=== PATIENT | male | born 1980 | race Caucasian/White ===

== ENCOUNTER 2016-10-01 06:42 | Day surgery (SDC) | payer BC ==
[2016-09-29 14:01] VITALS: BMI 38.0
[2016-10-01 07:09] LABS: URINE APPEARANCE CLEAR; URINE BILIRUBIN NEGATIVE (NEGATIVE); URINE BLOOD NEGATIVE (NEGATIVE); URINE COLOR YELLOW; URINE GLUCOSE (UA) NEGATIVE (NEGATIVE); URINE KETONE TRACE (NEGATIVE); URINE LEUK ESTERASE NEGATIVE (NEGATIVE); URINE NITRITE NEGATIVE (NEGATIVE); URINE PROTEIN NEGATIVE (NEGATIVE); URINE UROBILINOGEN NEGATIVE E.U./dl (0.2-1.0)
[2016-10-01] MEDS ORDERED: BUPIVACAINE HCL/PF 0.25% (2.5MG/ML) 10 ML VIAL ONE (07:26)
[2016-10-01] MEDS ORDERED: SUCCINYLCHOLINE CHLORIDE 200 MG/10 ML VIAL ONE (07:37)
[2016-10-01] MEDS ORDERED: ROCURONIUM BROMIDE 50 MG/5 ML VIAL ONE ×2 (07:37→09:01)
[2016-10-01] MEDS ORDERED: PROPOFOL 20 ML ONE ×2 (07:37)
[2016-10-01] MEDS ORDERED: MIDAZOLAM HCL 2 MG/2 ML SINGLE DOSE VIAL ONE (07:37)
[2016-10-01] MEDS ORDERED: LIDOCAINE HCL/PF 2% SDV 5ML VIAL ONE (07:39)
[2016-10-01] MEDS ORDERED: CLINDAMYCIN PHOSPHATE 600 MG/4 ML VIAL ONE (08:24)
[2016-10-01] MEDS ORDERED: CLINDAMYCIN 900 MG PREMIX BAG IVPB ONE (08:24)
[2016-10-01] MEDS ORDERED: KETOROLAC TROMETHAMINE 30 MG/1 ML VIAL ONE (08:33)
[2016-10-01] MEDS ORDERED: ePHEDrine SULFATE 50 MG/1 ML AMPULE ONE (08:50)
[2016-10-01] MEDS ORDERED: GLYCOPYRROLATE 0.2 MG/1 ML VIAL ONE (09:07)
[2016-10-01] MEDS ORDERED: NEOSTIGMINE METHYLSULFATE 0.5 MG/ML - 10 ML MDV ONE (09:07)
[2016-10-01] MEDS ORDERED: HYDROmorphone HCL CARPU-JECT 1 MG/1 ML DISP.SYRIN IVPB PRN (09:35)
[2016-10-01] MEDS ORDERED: SODIUM CHLORIDE 1,000 ML IV SCH (09:45)
[2016-10-01] MEDS ORDERED: HYDROmorphone HCL CARPU-JECT 2 MG/1 ML DISP.SYRIN ONE (09:58)
[2016-10-01] MEDS ORDERED: FAMOTIDINE 20 MG/50 ML IVPB 50 ML IVPB SCH (10:00)
[2016-10-01 10:23] LABS: MCH 30.8 pg (25.7-33.7); MCHC 33.7 g/dl (32.0-35.9); MEAN CELL VOLUME 91.3 fl (80-96); MEAN PLT VOLUME 9.5 fl (7.5-11.1); PLATELET COUNT 139 K/MM3 (134-434); RDW 13.1 % (11.9-15.9)
[2016-10-01] MEDS ORDERED: FAMOTIDINE 20 MG PREMIXED IVPB IVPB ONE (10:29)
[2016-10-01] MEDS ORDERED: LACTATED RINGERS SOLUTION 1,000 ML IV SCH (10:30)
[2016-10-01 10:52] LABS: CALCIUM 8.8 mg/dL (8.5-10.1); COCKROFT - GAULT 162.22
[2016-10-01] MEDS ORDERED: oxyCODONE HCL 5 MG TABLET PO PRN (11:00)
[2016-10-01] MEDS ORDERED: ONDANSETRON 4 MG/2 ML VIAL IVPB PRN (11:00)
[2016-10-01] MEDS ORDERED: ENOXAPARIN NA (PORCINE) 40 MG/0.4 ML DISP.SYRIN SQ ONE (11:15)
--- NOTE | 2016-10-01 11:31 | HP ---
DATE OF ADMISSION: 10/01/2016 ACUTE COMPLAINT: Morbid obesity. HISTORY OF PRESENT ILLNESS: This patient is a 36-year-old gentleman with a history of morbid obesity for many years despite multiple attempts at dietary weight loss. He received nutritional, psychological, and medical clearance prior to undergoing laparoscopic gastric band surgery. PAST MEDICAL HISTORY: Significant for diabetes mellitus. REVIEW OF SYMPTOMS: Essentially within normal limits. PHYSICAL EXAMINATION: General: Patient is awake, alert, in no acute distress, alert and oriented, well informed. Lungs: Clear anterior to posterior. Heart: Regular sinus rhythm. Abdomen: Severe obesity noted. It is soft, nontender on palpation. No organomegaly is noted. Extremities: No signs of any edema. No swelling. Full range of motion all extremities. LABORATORY VALUES: Essentially within normal limits except for high cholesterol and high triglyceride levels. IMPRESSION: Morbid obesity, diabetes mellitus, hypercholesterolemia. PLAN: OR for laparoscopic gastric band surgery. Phil [id number]
[2016-10-01 11:45] VITALS: TEMP 97.6
[2016-10-01 14:41] VITALS: BP 119/75; PULSE 65
--- NOTE | 2016-10-02 08:59 | OP ---
DATE OF OPERATION: 10/01/2016 PREOPERATIVE DIAGNOSIS: 1. Morbid obesity. 2. Diabetes mellitus. POSTOPERATIVE DIAGNOSIS: 1. Morbid obesity. 2. Diabetes mellitus. PROCEDURE PERFORMED: 1. Laparoscopic gastric band for gastric restriction. 2. Diagnostic laparoscopy. OPERATING SURGEON: Pj Roque MD TELEPHONE BETTING CLERK: Tone Melendrez MD ANESTHESIA: General. OPERATIVE PROCEDURE: The patient was brought into the operating room, placed on the OR table in supine position. All precautions were taken initially including padding for the back and the feet, and Venodyne boots were placed on both lower extremities. At that point, the abdomen was prepped and draped in the usual manner. A Veress needle was placed in the left upper quadrant, and a pneumoperitoneum was established. A No. 12 bladeless trocar was placed in the left upper quadrant. Through that trocar, a laparoscopic camera was placed. Under direct vision, a No. 12 bladeless trocar was placed below the left costal margin, and the laparoscopic camera was placed there. This gave better visualization in order to place a No. 15 and No. 5 bladeless trocar in the right upper quadrant. A Jessica Liver Retractor was then placed in the epigastrium to retract the left lobe of the liver. The patient was then placed in 20-degree reverse Trendelenburg position. The proximal fundus was pulled to the patients right side by the operating surgeon as the human services assistant surgeon retracted the omentum inferiorly. This provided visualization to the left upper quadrant. Electrocautery was used to score the peritoneum over the left esophagogastric junction, and this continued superiorly until the left elvia of the diaphragm was noted. The human services assistant surgeon then retracted the stomach to the patients left side, and the operating surgeon located the caudate lobe on the lesser curve of the stomach. An opening was made in the avascular plane, and then the gastrohepatic ligament was partially divided with hemoclip up toward the right esophagogastric junction. The right elvia of the diaphragm was noted, and the peritoneum anterior to it was scored with electrocautery. A laparoscopic instrument was then used to make a blunt tunnel from the right to left elvia until free in the left upper quadrant of the abdomen. The gastric band, which was an AP standard band, was then prepped by the OR team, placed with a No. 15 port site. The band tube was placed in the laparoscopic instrument, which was pulled and withdrawn to the patients right side. The band tube was placed into the band buckle, which was tied or synched down, and the band was rotated to the patients right side. A laparoscopic instrument neatly fit between the band and the anterior stomach wall. The band was then sewn in place with the Endo Stitch, used to grab bite of stomach serosa above and below the band, and tied over the band. When this was completed, the band tubing was brought at the No. 15 port site, and under direct vision, all trocars were removed and pneumoperitoneum was released. The No. 15 port site was extended laterally, and dissection continued down to the right anterior rectus muscle fascia. The 2-0 Prolene sutures were placed on all 4 sides, and the port was then attached to the anterior rectus muscle. The 2-0 Prolene was also used to close the No. 15 port site of the internal hernia. All trocar sites received 0.25% Marcaine, were closed with 4-0 Biosyn in subcuticular fashion. Dressings were applied. Patient awoke from anesthesia and transferred out of the operating room to the recovery room in stable condition. ANESTHESIA: General. SURGEON: Pj Roque MD TELEPHONE BETTING CLERK: Tone Melendrez MD EXPECTED BLOOD LOSS: 30 mL. Patient transferred to the recovery room in stable condition. PJ ROQUE M.D. [id number]
== END 2016-10-01 13:00 | disposition home or self-care (01) ==
LOC: JASU-SURG 06:42 → JASUSAT 06:42
PROVIDERS: ATTEND Surgery
PROC: 0DV64CZ Restriction of Stomach with Extraluminal Device, Percutaneous Endoscopic Approach (ICD-10-PCS; principal; 2016-10-01 08:00)
DX: E66.01 Morbid (severe) obesity due to excess calories (principal); E11.9 Type 2 diabetes mellitus without complications
CPT/HCPCS: 36415; 74241-TC; 80048; 81003; 85027; 86850; 86900; 86901; 94010; 94760

== ENCOUNTER 2016-12-18 09:18 | Emergency (ER) | payer OTHER, BC ==
[2016-12-18 09:22] VITALS: BP 139/82; PULSE 74; TEMP 99.1; BMI 33.4
--- NOTE | 2016-12-18 10:19 | PDOC ---
History of Present Illness - General Chief Complaint: Laceration Stated Complaint: RT HAND LACERATION Time Seen by Provider: 12/18/16 09:37 History Source: Patient Exam Limitations: No Limitations - History of Present Illness Initial Comments: 12/18/16 10:13 36 yr male with c/o laceration to right arm this AM at work using box liner. 12/18/16 10:17 Timing/Duration: reports: just prior to arrival Severity: Yes: moderate Location: reports: extremities (right inner forearm ) Past History - Past Medical History Allergies/Adverse Reactions: Allergies Allergy/AdvReac Type Severity Reaction Status Date / Time Penicillins Allergy Verified 12/18/16 09:22 Home Medications: Ambulatory Orders Metformin HCl 500 mg PO DAILY 09/29/16 Famotidine [Pepcid -] 20 mg PO BID #60 tablet 10/01/16 Anemia: No Asthma: No Cancer: No Cardiac Disorders: No CVA: No COPD: No CHF: No Dementia: No Diabetes: Yes (PRE-DIABETIC) GI Disorders: No Disorders: No HTN: No Hypercholesterolemia: No Liver Disease: No Seizures: No Thyroid Disease: No - Surgical History Gastric Stapling: No (LAP BAND) - Psycho/Social/Smoking Cessation Hx Suicidal Ideation: No Smoking History: Current every day smoker Have you smoked in the past 12 months: Yes Number of Cigarettes Smoked Daily: 20 Information on smoking cessation initiated: Yes 'Breaking Loose' booklet given: 12/18/16 Hx Alcohol Use: Yes Drug/Substance Use Hx: No Substance Use Type: None Hx Substance Use Treatment: Yes Review of Systems - Review of Systems Able to Perform ROS?: Yes Is the patient limited [place] proficient: No Constitutional: No: Symptoms Reported HEENTM: No: Symptoms Reported Respiratory: No: Symptoms reported Cardiac (ROS): No: Symptoms Reported ABD/GI: No: Symptoms Reported : No: Symptoms Reported Integumentary: Yes: Symptoms Reported, See HPI Neurological: No: Symptoms reported *Physical Exam - Vital Signs Last Vital Signs Temp Pulse Resp BP Pulse Ox 99.1 F 74 20 139/82 99 12/18/16 09:19 12/18/16 09:19 12/18/16 09:19 12/18/16 09:19 12/18/16 09:19 - Physical Exam General Appearance: Yes: Nourished, Appropriately Dressed HEENT: positive: EOMI, PIPER Neck: negative: Tender Respiratory/Chest: positive: Lungs Clear, Normal Breath Sounds. negative: Chest Tender Cardiovascular: positive: Regular Rhythm, Regular Rate Extremity: positive: Normal Capillary Refill, Normal Inspection, Normal Range of Motion Integumentary: positive: Other (right inner forearm with laceration ) Neurologic: positive: Fully Oriented, Alert, Normal Mood/Affect, Normal Response , Motor Strength 5/5 Procedures - Laceration/Wound Repair Right Lateral Arm Wound Length: 5.0 to 7.5 cm Wound Explored: clean Wound's Depth, Shape: linear Irrigated w/ Saline: Yes Betadine Prep: Yes Anesthesia: 1% Lidocaine Amount of Anesthetic (ccs): 5 Wound Repaired With: Sutures Suture Size/Type: 5:0, 4:0, nylon Number of Sutures: 9 Layer Closure: No Sterile Dressing Applied: Yes Medical Decision Making - Medical Decision Making 12/18/16 10:21 cc: laceration to right forearm pt is left hand dominant no tendon involvement no muscle involvement FROM of the hand and all fingers nv intact no fb seen the lac is linear and will be repaired with sutures dc inst given to pt who agrees with the plan of care. *DC/Admit/Observation/Transfer Diagnosis at time of Disposition: Laceration of arm Qualifiers: Encounter type: initial encounter Laterality: right Qualified Code(s): S41.111A - Laceration without foreign body of right upper arm, initial encounter - Discharge Dispostion Disposition: HOME Condition at time of disposition: Improved - Patient Instructions Printed Discharge Instructions: DI for Laceration Repair Additional Instructions: keep clean and dry do not get wet apply a small amount of bacitracin to the wound once a day and keep covered at work and sleep remove bandage while at home airing out the wound return in 7-10 days for suture removal if any redness, drainage or other concerns return sooner for a wound check
== END 2016-12-18 10:26 | disposition home or self-care (01) ==
LOC: JERFT 09:18
CPT/HCPCS: 99281-25

== ENCOUNTER 2016-12-25 11:44 | Emergency (ER) | payer OTHER, BC ==
[2016-12-25 11:56] VITALS: BP 122/81; PULSE 77; TEMP 97.8; BMI 32.5
--- NOTE | 2016-12-25 12:58 | PDOC ---
Suture Removal/Wound Check HPI - History of Present Illness Chief Complaint: Laceration Stated Complaint: SUTURE/STAPLE PROBLEM Time Seen by Provider: 12/25/16 12:47 History Source: Yes: Patient Exam Limitations: Yes: No Limitations Treated at: [facility] ED - Previous ED Treatment Type of procedure performed on last visit: Yes: Laceration Repair Antibiotics Prescribed: No - Onset of Previous Treatment Date of Occurence: 12/18/16 Past History - Past Medical History Allergies/Adverse Reactions: Allergies Penicillins Allergy (Verified 12/25/16 11:46) Home Medications: Ambulatory Orders Metformin HCl 500 mg PO DAILY 09/29/16 Famotidine [Pepcid -] 20 mg PO BID #60 tablet 10/01/16 - Immunization History Tetanus Status: Unknown - Social History Smoking Status: Current every day smoker Number of Ciarettes Per Day: 20 Suture Removal/Wound Check PE - Physical Exam Laceration/Wound Check Symptoms: reports: Other Comment (7 sutures spontaneously came out. wound margins approximated with dehiscence present in 2 locations. wound edges reinforced with steri-strips.) Location of Laceration/Wound: right: Forearm *Review of Systems - Review of Systems Able to Perform ROS?: Yes Constitutional: No: Symptoms Reported HEENTM: No: Symptoms Reported Respiratory: No: Symptoms reported Cardiac (ROS): No: Symptoms Reported ABD/GI: No: Symptoms Reported : No: Symptoms Reported Musculoskeletal: No: Symptoms Reported Integumentary: Yes: Other (7cm laceration to volar aspect of right forearm. 2 of 9 sutures remain.) Neurological: No: Symptoms reported Medical Decision Making - Medical Decision Making 12/25/16 13:04 CC: wound check A: repaired laceration with 7/9 sutures spontaneously removed. 2 areas of dehiscence present. Wound reinforced with steri-strips. No s/s infection. P: reinforce wound discharge *DC/Admit/Observation/Transfer Diagnosis at time of Disposition: Encounter for wound re-check - Discharge Dispostion Disposition: HOME Condition at time of disposition: Stable - Referrals Referrals: Eldon Nicolas MD [Primary Care Provider] - - Patient Instructions Printed Discharge Instructions: DI for Laceration Repair Additional Instructions: Return in 3 days for re-evaluation of wound. Thank you for choosing us to provide your emergent health care needs.
== END 2016-12-25 13:12 | disposition home or self-care (01) ==
LOC: JERFT 11:44 → JER 11:44 → JERFT 13:12
DX: T81.33XA Disruption of traumatic injury wound repair, initial encounter (principal)
CPT/HCPCS: 99281-25

== ENCOUNTER 2020-10-11 15:50 | Emergency (ER) | payer BC ==
[2020-10-11 15:56] VITALS: BMI 34.0
[2020-10-11] MEDS ORDERED: FAMOTIDINE 20 MG TABLET PO ONE ×2 (17:10→20:30)
[2020-10-11] MEDS ORDERED: ACETAMINOPHEN 500 MG TABLET (FP) PO ONE (17:10)
[2020-10-11] MEDS ORDERED: MAG HYDROX/AL HYDROX/SIMETH -MYLANTA- ORAL SUSPENSION PO ONE (17:10)
[2020-10-11] MEDS ORDERED: MAG HYDROX/AL HYDROX/SIMETH 30 ML UNIT-DOSE CUP ONE (17:27)
[2020-10-11] MEDS ORDERED: FAMOTIDINE 20 MG TABLET ONE ×2 (17:28→20:36)
[2020-10-11] MEDS ORDERED: ACETAMINOPHEN 500 MG TABLET (FP) ONE (17:31)
[2020-10-11 17:47] LABS: BASO % 0.2 % (0-2.0); HEMATOCRIT 43.3 % (35.4-49); HEMOGLOBIN 14.7 GM/dL (11.7-16.9); LYMPH % 13.8 % (8-40); MCH 30.8 pg (25.7-33.7); MCHC 33.9 g/dl (32.0-35.9); MEAN CELL VOLUME 90.8 fl (80-96); MEAN PLT VOLUME 8.4 fl (7.5-11.1); MONO % 4.3 % (3.8-10.2); NEUT % 81.7 % (42.8-82.8); PLATELET COUNT 241 10^3/uL (134-434); RBC 4.77 M/mm3 (4.00-5.60); RDW 13.7 % (11.9-15.9); WHITE BLOOD COUNT 15.8 K/mm3 (4.0-10.0)
[2020-10-11 18:00] LABS: INR 1.1 (0.83-1.09); PROTHROMBIN TIME (PATIENT) 13.5 SEC (9.7-13.0)
[2020-10-11 18:07] VITALS: BP 144/94; PULSE 63; TEMP 98.1
[2020-10-11 18:07] LABS: CALCIUM 9.7 mg/dL (8.5-10.1)
[2020-10-11 18:08] LABS: ALBUMIN 4.4 g/dl (3.4-5.0); BLOOD UREA NITROGEN 10.9 mg/dL (7-18)
[2020-10-11 18:13] LABS: BILIRUBIN,TOTAL 0.6 mg/dL (0.2-1); TOT PROT 7.7 g/dl (6.4-8.2)
[2020-10-11] MEDS ORDERED: SUCRALFATE 1 GM/10 ML UNIT DOSE CUPS PO ONE (20:31)
[2020-10-11] MEDS ORDERED: SUCRALFATE 1 GM TABLET (FP) ONE (20:36)
== END 2020-10-11 20:49 | disposition home or self-care (01) ==
LOC: JER 15:50
DX: K21.00 Gastro-esophageal reflux disease with esophagitis, without bleeding (principal)
CPT/HCPCS: 36415; 74177-TC; 80053; 83690; 85025; 85610; 86850; 86900; 86901; 99285-25; Q9967

== ENCOUNTER 2023-02-15 09:54 | Emergency (ER) | payer OTHER, BC ==
[2023-02-15 10:05] VITALS: BP 157/87; PULSE 87; RESP 20; TEMP 98.4; BMI 34.0
[2023-02-15] MEDS ORDERED: ACETAMINOPHEN 500 MG TABLET (FP) PO ONE (11:03)
[2023-02-15] MEDS ORDERED: LIDOCAINE 5% TOPICAL PATCH TP ONE (11:04)
[2023-02-15] MEDS ORDERED: KETOROLAC TROMETHAMINE 30 MG/1 ML VIAL IM ONE (11:04)
[2023-02-15] MEDS ORDERED: ACETAMINOPHEN 500 MG TABLET (FP) ONE (11:48)
[2023-02-15] MEDS ORDERED: LIDOCAINE 4% PATCH TP ONE ×2 (11:48→12:44)
[2023-02-15] MEDS ORDERED: KETOROLAC TROMETHAMINE 30 MG/1 ML VIAL ONE (11:48)
[2023-02-15] MEDS ORDERED: ACETAMINOPHEN 650 MG/20.3 ML ORAL SOLUTION (CUPS) ONE (11:54)
[2023-02-15] MEDS ORDERED: LIDOCAINE PATCH REMOVAL MC ONE (22:00)
== END 2023-02-15 13:23 | disposition home or self-care (01) ==
LOC: JERFT 09:54 → JER 09:54 → JERFT 13:23
PROC: 3E0233Z Introduction of Anti-inflammatory into Muscle, Percutaneous Approach (ICD-10-PCS; principal; 2023-02-15)
DX: M54.6 Pain in thoracic spine (principal)
CPT/HCPCS: 71046-TC-FY; 93005; 93010; 99284-25

== ENCOUNTER 2023-06-24 07:46 | Inpatient (IN) | payer BC ==
[2023-06-15 11:40] VITALS: BMI 36.1
[2023-06-24] MEDS ORDERED: BUPIVACAINE HCL/PF 0.25% (2.5MG/ML) 10 ML VIAL ONE (08:13)
[2023-06-24] MEDS ORDERED: ROCURONIUM BROMIDE 50 MG/5 ML SYRINGE ONE ×2 (09:07→10:57)
[2023-06-24] MEDS ORDERED: PROPOFOL 20 ML ONE (09:07)
[2023-06-24] MEDS ORDERED: MIDAZOLAM HCL 2 MG/2 ML SINGLE DOSE VIAL ONE (09:55)
[2023-06-24] MEDS ORDERED: SUGAMMADEX SODIUM 200 MG/2 ML VIAL ONE (12:24)
[2023-06-24] MEDS ORDERED: HYDROmorphone HCL/PF 1 MG/ML VIAL IVPB PRN ×2 (13:34→13:35)
[2023-06-24] MEDS ORDERED: FENTANYL CITRATE/PF 50 MCG/ML VIAL ONE ×2 (13:47→13:53)
[2023-06-24] MEDS ORDERED: FAMOTIDINE 20 MG/50 ML IVPB 20 MG/50 ML MG IVPB ONE (13:47)
[2023-06-24] MEDS ORDERED: ACETAMINOPHEN INJECTION 100 ML IVPB ONE (13:48)
[2023-06-24] MEDS ORDERED: PROMETHAZINE HCL 25 MG/1 ML VIAL IVPB PRN (13:52)
[2023-06-24] MEDS: ACETAMINOPHEN 1000 MG/100 ML BAG IVPB ONE (13:55)
[2023-06-24] MEDS ORDERED: METOCLOPRAMIDE HCL INJECTION 10 MG/2 ML VIAL ONE (14:21)
[2023-06-24] MEDS: METOCLOPRAMIDE HCL INJECTION 10 MG/2 ML VIAL IVPB SCH (14:25)
[2023-06-24] MEDS ORDERED: ONDANSETRON 4 MG/2 ML VIAL ONE (14:26)
[2023-06-24 14:28] LABS: HEMATOCRIT 41.6 % (35.4-49); HEMOGLOBIN 14.2 G/dL (11.7-16.9); MCH 31.5 pg (25.7-33.7); MEAN CELL VOLUME 92.5 fl (80-96); MEAN PLT VOLUME 8.6 fl (7.5-11.1); PLATELET COUNT 171.9 10^3/uL (134-434); WHITE BLOOD COUNT 14.9 10^3/uL (4.0-10.8)
[2023-06-24] MEDS: FAMOTIDINE 20 MG PREMIXED IVPB IVPB ONE (14:28)
[2023-06-24] MEDS: ONDANSETRON 4 MG/2 ML VIAL IVPUSH PRN (14:28)
[2023-06-24 15:23] LABS: ALBUMIN 4.3 g/dl (3.4-5.0); BILIRUBIN,TOTAL 0.5 mg/dl (0.2-1); CALCIUM 8.7 mg/dl (8.5-10.1); CREATININE 0.9 mg/dl (0.6-1.3); POTASSIUM 4.3 mmol/L (3.5-5.1); TOT PROT 6.3 g/dl (6.4-8.2)
[2023-06-24] MEDS: SODIUM CHLORIDE 1,000 ML IV SCH (17:40)
[2023-06-24] MEDS: FAMOTIDINE 20 MG/50 ML IVPB 20 MG/50 ML MG IVPB SCH (21:12)
[2023-06-24 21:46] LABS: HEMATOCRIT 40.3 % (35.4-49); HEMOGLOBIN 13.8 G/dL (11.7-16.9); MCH 31.5 pg (25.7-33.7); MCHC 34.3 g/dl (32.0-35.9); MEAN CELL VOLUME 91.9 fl (80-96); MEAN PLT VOLUME 8.4 fl (7.5-11.1); PLATELET COUNT 185.5 10^3/uL (134-434); RBC 4.39 10^6/uL (4.00-5.60); WHITE BLOOD COUNT 13.4 10^3/uL (4.0-10.8)
[2023-06-24 22:04] LABS: ALBUMIN 4.1 g/dl (3.4-5.0); BILIRUBIN,TOTAL 0.7 mg/dl (0.2-1); CALCIUM 8.9 mg/dl (8.5-10.1); CREATININE 0.8 mg/dl (0.6-1.3); TOT PROT 6.2 g/dl (6.4-8.2)
[2023-06-24 23:18] VITALS: RESP 18
[2023-06-25 08:45] LABS: HEMATOCRIT 38.8 % (35.4-49); HEMOGLOBIN 13.5 G/dL (11.7-16.9); MCH 31.7 pg (25.7-33.7); MCHC 34.7 g/dl (32.0-35.9); MEAN CELL VOLUME 91.6 fl (80-96); PLATELET COUNT 181.2 10^3/uL (134-434); RBC 4.24 10^6/uL (4.00-5.60); RDW 13.9 % (11.9-15.9); WHITE BLOOD COUNT 14.1 10^3/uL (4.0-10.8)
[2023-06-25 09:19] LABS: BILIRUBIN,TOTAL 0.9 mg/dl (0.2-1); CALCIUM 8.8 mg/dl (8.5-10.1); CREATININE 0.9 mg/dl (0.6-1.3); POTASSIUM 4.1 mmol/L (3.5-5.1); TOT PROT 5.9 g/dl (6.4-8.2)
[2023-06-25] MEDS ORDERED: ACETAMINOPHEN 325 MG TABLET (FP) PO PRN (13:36)
[2023-06-25] MEDS ORDERED: oxyCODONE HCL 5 MG TABLET PO PRN (13:36)
[2023-06-25] MEDS ORDERED: SODIUM CHLORIDE 1,000 ML IV SCH (13:45)
[2023-06-25 14:03] VITALS: BP 134/80; PULSE 84; TEMP 99.4
== END 2023-06-25 14:22 | disposition home or self-care (01) | DRG 620 ==
LOC: FM/S 07:46
PROVIDERS: ADMIT Surgery; ATTEND Surgery
PROC: 0DNW4ZZ Release Peritoneum, Percutaneous Endoscopic Approach (ICD-10-PCS; 2023-06-24)
PROC: 0DB64Z3 Excision of Stomach, Percutaneous Endoscopic Approach, Vertical (ICD-10-PCS; principal; 2023-06-24 11:04)
PROC: 0DP64CZ Removal of Extraluminal Device from Stomach, Percutaneous Endoscopic Approach (ICD-10-PCS; 2023-06-24 11:04)
DX: E66.01 Morbid (severe) obesity due to excess calories (principal); K95.09 Other complications of gastric band procedure; E11.9 Type 2 diabetes mellitus without complications; Z68.35 Body mass index [BMI] 35.0-35.9, adult; K29.50 Unspecified chronic gastritis without bleeding; K66.0 Peritoneal adhesions (postprocedural) (postinfection); B96.81 Helicobacter pylori [H. pylori] as the cause of diseases classified elsewhere; Y83.9 Surgical procedure, unspecified as the cause of abnormal reaction of the patient, or of later complication, without mention of misadventure at the time of the procedure
CPT/HCPCS: 36415; 74240-TC-FY; 80053; 82962; 85027; 86850; 86900; 86901; 88300-TC; 88307-TC; 94760; J0131